=== PATIENT | male | born 1975 | race African-American/Black ===

== ENCOUNTER 2016-05-21 00:29 | Emergency (ER) | payer MEDICAID ==
[~2016-05-21] VITALS: Ht 177.8 cm; Wt 79.0 kg
[2016-05-21] MEDS ORDERED: KETOROLAC 60MG/2ML VIAL IM ONE (02:45)
[2016-05-21 02:55] VITALS: BP 133/98
== END 2016-05-21 04:29 | disposition home or self-care (01) ==
LOC: ER 00:30
DX: G44.209 Tension-type headache, unspecified, not intractable (principal); F17.210 Nicotine dependence, cigarettes, uncomplicated; F12.10 Cannabis abuse, uncomplicated
CPT/HCPCS: 96372; 99283; J1885